=== PATIENT | female | born 1945 | race African-American/Black ===

== ENCOUNTER 2020-06-24 02:40 | Inpatient (IN) | payer OTHER, MEDICAID ==
[~2020-06-24] VITALS: Ht 160 cm; Wt 154.5 kg
[2020-06-24 05:16] LABS: Basophils # (auto) 0.1 10 ^3/uL (0-0.2); Eosinophils # (auto) 0.2 10 ^3/uL (0-0.8); Eosinophils % (auto) 3.2 % (0.0-7.0); Hematocrit 35.6 % (36.0-46.0); Hemoglobin 11.8 g/dL (12.2-16.2); Lymphocytes # (auto) 1.5 10 ^3/uL (0.4-5.4); Lymphocytes % (auto) 22.7 % (10.0-50.0); Mean Corpuscular Hemoglobin 28.8 pg (28.0-32.0); Mean Corpuscular Hgb Conc. 33.1 g/dL (32.0-36.0); Monocytes # (auto) 0.4 10 ^3/uL (0-1.3); Monocytes % (auto) 5.8 % (0.0-12.0); Neutrophils # (auto) 4.3 10 ^3/uL (1.6-8.6); Neutrophils % (auto) 67.3 % (37.0-80.0); Platelet Count (auto) 165 10^3/uL (140-450); Red Blood Cells 4.09 10^6/uL (4.0-5.20); Red Cell Distribution Width 14.7 % (11.8-14.3); White Blood Cell 6.4 10^3/uL (4.4-10.8)
[2020-06-24 05:41] LABS: Potassium 3.8 mmol/L (3.5-5.1)
[2020-06-24 05:53] LABS: Albumin 3.5 g/dL (3.4-5.0); BUN/Creatinine Ratio 17.6; Bilirubin, Total 0.5 mg/dL (0.2-1.0); CRP High Sensitivity 3.87 mg/dL (< 0.3); Calcium 8.7 mg/dL (8.5-10.1); Total Protein 7.6 g/dL (6.4-8.2)
[2020-06-24] MEDS ORDERED: CLINDAMYCIN 300MG IV 50 ML IV ONE (07:30)
[2020-06-24] MEDS ORDERED: PIPERACILLIN-TAZOB 3.375GM 100 ML IV ONE (07:30)
[2020-06-24] MEDS ORDERED: MORPHINE SULF INJ 2 MG/ML SYRINGE 1ML IV PRN ×2 (09:15→10:00)
[2020-06-24] MEDS ORDERED: NITROGLYCERIN 0.4 MG SL TAB SL PRN (09:15)
[2020-06-24] MEDS ORDERED: traMADol HCL 50 MG TAB PO PRN (10:00)
[2020-06-24] MEDS ORDERED: DEXTROSE (50%) 50ML SYRG IV PRN (10:00)
[2020-06-24] MEDS ORDERED: ONDANSETRON HCL 4 MG/2 ML VIAL IV PRN (10:00)
[2020-06-24] MEDS ORDERED: LACTULOSE 20Gm/30ML SOLN PO PRN (10:00)
[2020-06-24] MEDS ORDERED: TEMAZEPAM 15 MG CAP PO PRN (10:00)
[2020-06-24] MEDS ORDERED: ACETAMINOPHEN 500 MG TAB PO PRN (10:00)
[2020-06-24] MEDS ORDERED: levoFLOXacin 500MG 100 ML IV ONE (10:00)
[2020-06-24] MEDS: ENOXAPARIN SOD 40 MG/0.4 ML SYRINGE SC SCH (10:45)
[2020-06-24] MEDS: FAMOTIDINE 20 MG TAB PO SCH ×2 (10:45→23:10)
[2020-06-24] MEDS: levoFLOXacin 500MG 100 ML IV SCH (10:45)
[2020-06-24] MEDS: InsuLIN REG 1unit/0.01ml Soln (100units/ml) SC SCH ×3 (13:19→23:11)
[2020-06-24] MEDS: ACCU-CHEK COMFORT CURVE STRIP VI SCH ×3 (13:19→23:12)
[2020-06-24] MEDS: CLINDAMYCIN 600MG IV 50 ML IV SCH ×2 (14:16→22:00)
[2020-06-24 16:59] LABS: INR 1.09 (0.9-1.15)
[2020-06-25 05:05] VITALS: BP 148/72
[2020-06-25] MEDS: CLINDAMYCIN 600MG IV 50 ML IV SCH ×3 (06:00→21:40)
[2020-06-25] MEDS: ACCU-CHEK COMFORT CURVE STRIP VI SCH ×4 (07:00→21:39)
[2020-06-25] MEDS: InsuLIN REG 1unit/0.01ml Soln (100units/ml) SC SCH ×4 (07:00→22:00)
[2020-06-25 07:45] LABS: Urine WBC None Seen /hpf (0 - 5)
[2020-06-25 08:00] VITALS: BP 147/70
[2020-06-25 08:03] LABS: Urine Bacteria NONE SEEN /hpf (None Seen); Urine Blood Negative /uL (Negative); Urine Specific Gravity 1.007 (1.001-1.035)
[2020-06-25] MEDS: ENOXAPARIN SOD 40 MG/0.4 ML SYRINGE SC SCH (10:00)
[2020-06-25] MEDS: FAMOTIDINE 20 MG TAB PO SCH ×2 (10:17→21:40)
[2020-06-25] MEDS: levoFLOXacin 500MG 100 ML IV SCH (10:18)
[2020-06-25] MEDS ORDERED: ceFAZolin 1GM VL ONE (12:00)
[2020-06-25] MEDS ORDERED: ceFAZolin 1GM/50ML 50 ML IV ONE (13:45)
[2020-06-25] MEDS ORDERED: ROPIVACAINE 0.5% (5MG/ML) 20ML AMPULE IJ ONE (14:25)
[2020-06-25 16:00] VITALS: BP 140/78
[2020-06-25 22:00] VITALS: BP 169/76
[2020-06-26 05:00] VITALS: BP 148/78
[2020-06-26] MEDS: InsuLIN REG 1unit/0.01ml Soln (100units/ml) SC SCH ×4 (06:20→21:58)
[2020-06-26] MEDS: ACCU-CHEK COMFORT CURVE STRIP VI SCH ×4 (06:20→21:57)
[2020-06-26] MEDS: CLINDAMYCIN 600MG IV 50 ML IV SCH ×3 (06:21→21:57)
[2020-06-26 07:31] LABS: Basophils # (auto) 0 10 ^3/uL (0-0.2); Eosinophils # (auto) 0.2 10 ^3/uL (0-0.8); Eosinophils % (auto) 3.8 % (0.0-7.0); Hematocrit 34.1 % (36.0-46.0); Hemoglobin 11.3 g/dL (12.2-16.2); Lymphocytes # (auto) 1.5 10 ^3/uL (0.4-5.4); Lymphocytes % (auto) 34.9 % (10.0-50.0); Mean Corpuscular Hemoglobin 28.5 pg (28.0-32.0); Mean Corpuscular Volume 86.4 fL (80.0-100.0); Monocytes # (auto) 0.3 10 ^3/uL (0-1.3); Monocytes % (auto) 6.8 % (0.0-12.0); Neutrophils # (auto) 2.4 10 ^3/uL (1.6-8.6); Neutrophils % (auto) 53.5 % (37.0-80.0); Nucleated Red Blood Cells % 0.1 %; Platelet Count (auto) 178 10^3/uL (140-450); Red Blood Cells 3.95 10^6/uL (4.0-5.20); Red Cell Distribution Width 14.5 % (11.8-14.3); White Blood Cell 4.4 10^3/uL (4.4-10.8)
[2020-06-26 07:42] LABS: Potassium 3.7 mmol/L (3.5-5.1)
[2020-06-26 07:45] LABS: Albumin 3.1 g/dL (3.4-5.0); BUN/Creatinine Ratio 13.6; Calcium 8.5 mg/dL (8.5-10.1)
[2020-06-26 07:51] LABS: Bilirubin, Total 0.7 mg/dL (0.2-1.0); Total Protein 6.8 g/dL (6.4-8.2)
[2020-06-26 08:00] VITALS: BP 142/74
[2020-06-26] MEDS: ENOXAPARIN SOD 40 MG/0.4 ML SYRINGE SC SCH (10:19)
[2020-06-26] MEDS: levoFLOXacin 500MG 100 ML IV SCH (10:19)
[2020-06-26] MEDS: FAMOTIDINE 20 MG TAB PO SCH ×2 (10:19→21:57)
[2020-06-26] MEDS: POTASSIUM CHL 10 Meq TABLET PO SCH (10:20)
[2020-06-26] MEDS: amLODIPine BESYLATE 5 MG TAB PO SCH (10:20)
[2020-06-26] MEDS: FUROSEMIDE 40 MG TAB PO SCH (10:21)
[2020-06-26 16:00] VITALS: BP 141/70
[2020-06-26 22:00] VITALS: BP 141/73
[2020-06-27 05:00] VITALS: BP 148/71
[2020-06-27] MEDS: CLINDAMYCIN 600MG IV 50 ML IV SCH ×3 (06:01→21:50)
[2020-06-27] MEDS: ACCU-CHEK COMFORT CURVE STRIP VI SCH ×4 (06:01→21:50)
[2020-06-27] MEDS: InsuLIN REG 1unit/0.01ml Soln (100units/ml) SC SCH ×4 (06:01→22:09)
[2020-06-27 07:42] LABS: Basophils # (auto) 0.1 10 ^3/uL (0-0.2); Eosinophils # (auto) 0.2 10 ^3/uL (0-0.8); Hematocrit 35.6 % (36.0-46.0); Hemoglobin 11.6 g/dL (12.2-16.2); Lymphocytes # (auto) 1.7 10 ^3/uL (0.4-5.4); Lymphocytes % (auto) 33.5 % (10.0-50.0); Mean Corpuscular Hemoglobin 28.3 pg (28.0-32.0); Mean Corpuscular Hgb Conc. 32.5 g/dL (32.0-36.0); Monocytes # (auto) 0.4 10 ^3/uL (0-1.3); Monocytes % (auto) 7.3 % (0.0-12.0); Neutrophils # (auto) 2.8 10 ^3/uL (1.6-8.6); Neutrophils % (auto) 54.2 % (37.0-80.0); Platelet Count (auto) 190 10^3/uL (140-450); Red Blood Cells 4.09 10^6/uL (4.0-5.20); Red Cell Distribution Width 14.6 % (11.8-14.3); White Blood Cell 5.1 10^3/uL (4.4-10.8)
[2020-06-27 07:54] LABS: Potassium 4.1 mmol/L (3.5-5.1)
[2020-06-27 08:00] VITALS: BP 138/73
[2020-06-27 08:02] LABS: BUN/Creatinine Ratio 15.4; Calcium 8.6 mg/dL (8.5-10.1)
[2020-06-27] MEDS: POTASSIUM CHL 10 Meq TABLET PO SCH (10:10)
[2020-06-27] MEDS: levoFLOXacin 500MG 100 ML IV SCH (10:10)
[2020-06-27] MEDS: amLODIPine BESYLATE 5 MG TAB PO SCH (10:11)
[2020-06-27] MEDS: FUROSEMIDE 40 MG TAB PO SCH (10:11)
[2020-06-27] MEDS: FAMOTIDINE 20 MG TAB PO SCH ×2 (10:11→21:50)
[2020-06-27] MEDS: ENOXAPARIN SOD 40 MG/0.4 ML SYRINGE SC SCH (10:12)
[2020-06-27 16:00] VITALS: BP 146/92
[2020-06-27 22:00] VITALS: BP 148/64
[2020-06-28 05:00] VITALS: BP 136/69
[2020-06-28 05:50] LABS: Basophils # (auto) 0.1 10 ^3/uL (0-0.2); Basophils % (auto) 1.1 % (0.0-2.0); Eosinophils # (auto) 0.2 10 ^3/uL (0-0.8); Eosinophils % (auto) 4.4 % (0.0-7.0); Hematocrit 33.6 % (36.0-46.0); Hemoglobin 11.4 g/dL (12.2-16.2); Lymphocytes # (auto) 1.7 10 ^3/uL (0.4-5.4); Lymphocytes % (auto) 34.6 % (10.0-50.0); Mean Corpuscular Hemoglobin 28.9 pg (28.0-32.0); Mean Corpuscular Hgb Conc. 33.9 g/dL (32.0-36.0); Mean Corpuscular Volume 85.4 fL (80.0-100.0); Monocytes # (auto) 0.3 10 ^3/uL (0-1.3); Monocytes % (auto) 6.5 % (0.0-12.0); Neutrophils # (auto) 2.7 10 ^3/uL (1.6-8.6); Neutrophils % (auto) 53.4 % (37.0-80.0); Nucleated Red Blood Cells % 0.2 %; Platelet Count (auto) 184 10^3/uL (140-450); Red Blood Cells 3.93 10^6/uL (4.0-5.20); Red Cell Distribution Width 14.2 % (11.8-14.3)
[2020-06-28] MEDS: ACCU-CHEK COMFORT CURVE STRIP VI SCH ×2 (06:02→12:17)
[2020-06-28] MEDS: InsuLIN REG 1unit/0.01ml Soln (100units/ml) SC SCH ×2 (06:02→12:29)
[2020-06-28 06:09] LABS: Calcium 8.2 mg/dL (8.5-10.1); Potassium 3.8 mmol/L (3.5-5.1)
[2020-06-28] MEDS: CLINDAMYCIN 600MG IV 50 ML IV SCH (06:09)
[2020-06-28 06:16] LABS: BUN/Creatinine Ratio 14.6
[2020-06-28 08:00] VITALS: BP 147/74
[2020-06-28] MEDS: FAMOTIDINE 20 MG TAB PO SCH (09:45)
[2020-06-28] MEDS: FUROSEMIDE 40 MG TAB PO SCH (09:45)
[2020-06-28] MEDS: amLODIPine BESYLATE 5 MG TAB PO SCH (09:45)
[2020-06-28] MEDS: POTASSIUM CHL 10 Meq TABLET PO SCH (09:45)
[2020-06-28] MEDS: ENOXAPARIN SOD 40 MG/0.4 ML SYRINGE SC SCH (09:46)
[2020-06-28] MEDS: levoFLOXacin 500MG 100 ML IV SCH (09:46)
[2020-06-28 12:07] VITALS: BP 136/62
== END 2020-06-28 14:00 | disposition home or self-care (01) | DRG 854 ==
LOC: EDBD 02:40 → ER 02:46 → TELE 02:47 → TELE-CENTR 06-25 03:30
PROVIDERS: ADMIT Internal Medicine; ATTEND Internal Medicine
PROC: 0JBQ0ZZ Excision of Right Foot Subcutaneous Tissue and Fascia, Open Approach (ICD-10-PCS; principal; 2020-06-25 14:28)
DX: A41.9 Sepsis, unspecified organism (principal); L03.115 Cellulitis of right lower limb; I13.0 Hypertensive heart and chronic kidney disease with heart failure and stage 1 through stage 4 chronic kidney disease, or unspecified chronic kidney disease; L97.319 Non-pressure chronic ulcer of right ankle with unspecified severity; Z68.44 Body mass index [BMI] 60.0-69.9, adult; I50.32 Chronic diastolic (congestive) heart failure; Z20.822 Contact with and (suspected) exposure to COVID-19; B96.4 Proteus (mirabilis) (morganii) as the cause of diseases classified elsewhere; I89.0 Lymphedema, not elsewhere classified; E66.01 Morbid (severe) obesity due to excess calories; E11.22 Type 2 diabetes mellitus with diabetic chronic kidney disease; D63.8 Anemia in other chronic diseases classified elsewhere; N18.2 Chronic kidney disease, stage 2 (mild); E11.621 Type 2 diabetes mellitus with foot ulcer; Z83.3 Family history of diabetes mellitus; Z90.710 Acquired absence of both cervix and uterus; Z85.41 Personal history of malignant neoplasm of cervix uteri
CPT/HCPCS: 36415; 71045; 73700; 80048; 80053; 81001; 82962; 83036; 83605; 84443; 85025; 85610; 85652; 86141; 87040; 87070; 87075; 87076; 87077; 87186; 87205; 87426; 93306; 96365; 96368; 96372; 97110; 97116; 97163; 97530; G0378; J0690; J1815; J1956; J2543; J3490

== ENCOUNTER 2021-08-19 16:56 | Inpatient (IN) | payer OTHER, MEDICAID ==
[~2021-08-19] VITALS: Ht 160 cm; Wt 152.2 kg
[2021-08-19] MEDS ORDERED: ACETAMINOPHEN 500 MG TAB PO ONE (17:15)
[2021-08-19] MEDS ORDERED: SODIUM CHLORIDE 0.9% 1,000 ML IV ONE (17:15)
[2021-08-19 18:31] LABS: Basophils # (auto) 0.1 10 ^3/uL (0-0.2); Basophils % (auto) 0.6 % (0.0-2.0); Eosinophils # (auto) 0 10 ^3/uL (0-0.8); Hematocrit 34.6 % (36.0-46.0); Hemoglobin 11.6 g/dL (12.2-16.2); Lymphocytes # (auto) 0.7 10 ^3/uL (0.4-5.4); Lymphocytes % (auto) 5.8 % (10.0-50.0); Mean Corpuscular Hgb Conc. 33.6 g/dL (32.0-36.0); Mean Corpuscular Volume 86.3 fL (80.0-100.0); Monocytes # (auto) 0.8 10 ^3/uL (0-1.3); Monocytes % (auto) 6.8 % (0.0-12.0); Neutrophils # (auto) 10.3 10 ^3/uL (1.6-8.6); Neutrophils % (auto) 86.8 % (37.0-80.0); Nucleated Red Blood Cells % 0.1 %; Red Blood Cells 4.01 10^6/uL (4.0-5.20); Red Cell Distribution Width 14.9 % (11.8-14.3); White Blood Cell 11.9 10^3/uL (4.4-10.8)
[2021-08-19 18:48] LABS: Albumin 3.1 g/dL (3.4-5.0); Calcium 8.7 mg/dL (8.5-10.1); Potassium 3.4 mmol/L (3.5-5.1)
[2021-08-19 19:04] LABS: Bilirubin, Total 1.5 mg/dL (0.2-1.0); Total Protein 7.2 g/dL (6.4-8.2)
[2021-08-20 00:13] LABS: Urine Bacteria NONE SEEN /hpf (None Seen); Urine Blood 2+ /uL (Negative); Urine Budding Yeast FEW /hpf (None Seen); Urine Specific Gravity 1.012 (1.001-1.035); Urine WBC 232 /hpf (0 - 5)
[2021-08-20] MEDS ORDERED: DOCUSATE SOD 100 MG CAP PO PRN (04:15)
[2021-08-20] MEDS ORDERED: ONDANSETRON HCL 4 MG/2 ML VIAL IV PRN (04:15)
[2021-08-20] MEDS ORDERED: DEXTROSE (50%) 50ML SYRG IV PRN (04:15)
[2021-08-20] MEDS ORDERED: cefTRIAXone 1GM/50ML D5W 50 ML IV ONE ×2 (04:15→04:16)
[2021-08-20] MEDS ORDERED: ACETAMINOPHEN 325 MG TAB PO PRN (04:15)
[2021-08-20 04:48] LABS: Basophils # (auto) 0.1 10 ^3/uL (0-0.2); Basophils % (auto) 0.5 % (0.0-2.0); Eosinophils # (auto) 0 10 ^3/uL (0-0.8); Eosinophils % (auto) 0.3 % (0.0-7.0); Hematocrit 32.8 % (36.0-46.0); Hemoglobin 11.1 g/dL (12.2-16.2); Lymphocytes # (auto) 0.7 10 ^3/uL (0.4-5.4); Lymphocytes % (auto) 6.3 % (10.0-50.0); Mean Corpuscular Hemoglobin 29.3 pg (28.0-32.0); Mean Corpuscular Hgb Conc. 33.9 g/dL (32.0-36.0); Mean Corpuscular Volume 86.3 fL (80.0-100.0); Monocytes % (auto) 8.9 % (0.0-12.0); Neutrophils # (auto) 9.6 10 ^3/uL (1.6-8.6); White Blood Cell 11.4 10^3/uL (4.4-10.8)
[2021-08-20 05:01] LABS: Albumin 2.8 g/dL (3.4-5.0); Calcium 8.3 mg/dL (8.5-10.1); Potassium 3.3 mmol/L (3.5-5.1)
[2021-08-20 05:04] LABS: BUN/Creatinine Ratio 13.6
[2021-08-20 05:06] LABS: Bilirubin, Total 1.2 mg/dL (0.2-1.0); Total Protein 6.5 g/dL (6.4-8.2)
[2021-08-20] MEDS ORDERED: NITROGLYCERIN 0.4 MG SL TAB SL PRN (05:15)
[2021-08-20] MEDS ORDERED: MORPHINE SULFATE INJECTION 2 MG/ML SYRG IV PRN (05:15)
[2021-08-20] MEDS: SODIUM CHLOR 0.9% PF (SALINE LOCK) 10ML VIAL/SYR IV SCH ×3 (06:16→22:00)
[2021-08-20] MEDS: ACCU-CHEK COMFORT CURVE STRIP VI SCH ×4 (06:44→22:14)
[2021-08-20] MEDS: InsuLIN REG 1unit/0.01ml Soln (100units/ml) SC SCH ×4 (06:45→22:00)
[2021-08-20 09:00] VITALS: BP 152/70
[2021-08-20] MEDS ORDERED: cefTRIAXone 1GM/50ML D5W 50 ML IV SCH (09:00)
[2021-08-20] MEDS: HYDROcodone-ACET 5/325MG TAB PO PRN ×2 (09:30→17:35)
[2021-08-20] MEDS ORDERED: FAMOTIDINE (10MG/ML) 2ML VL IV SCH (10:00)
[2021-08-20] MEDS: ASCORBIC ACID 500 MG TAB PO SCH ×2 (10:41→22:13)
[2021-08-20] MEDS: MULTIPLE VITAMIN TAB PO SCH (10:41)
[2021-08-20] MEDS: ZINC SULFATE 220mg CAP or TAB PO SCH (10:41)
[2021-08-20 12:54] VITALS: BP 112/78
[2021-08-20] MEDS ORDERED: ENOXAPARIN SOD 40 MG/0.4 ML SYRINGE SC ONE (16:00)
[2021-08-20] MEDS ORDERED: METF500S PO (16:29)
[2021-08-20] MEDS ORDERED: HYDR-4798 PO (16:29)
[2021-08-20] MEDS ORDERED: AMLO-489 PO (16:29)
[2021-08-20] MEDS ORDERED: BENZ100C97 PO (16:29)
[2021-08-20] MEDS ORDERED: LOSA-39 PO (16:29)
[2021-08-20] MEDS ORDERED: LATA0.0019 LEFTEYE (16:29)
[2021-08-20] MEDS ORDERED: POLYSOL2 LEFTEYE (16:29)
[2021-08-20] MEDS ORDERED: ALBU2TAB4 PO (16:29)
[2021-08-20] MEDS ORDERED: UMEC1INH IN (16:29)
[2021-08-20] MEDS ORDERED: PRED15SO26 LEFTEYE (16:29)
[2021-08-20] MEDS ORDERED: OME20GT PO (16:29)
[2021-08-20 17:00] VITALS: BP 123/62
[2021-08-20] MEDS ORDERED: PATIENTS OWN MEDICATION OP SCH (22:00)
[2021-08-20] MEDS: PANTOPRAZOLE 40 MG TAB PO SCH (22:13)
[2021-08-20] MEDS: LATANOPROST 0.005 % OPTH(EYE) SOL 2.5ML OP SCH (22:14)
[2021-08-20 22:37] VITALS: BP 125/62
[2021-08-21] MEDS: cefTRIAXone 1GM/50ML D5W 50 ML IV SCH (04:54)
[2021-08-21 05:28] VITALS: BP 136/66
[2021-08-21] MEDS: SODIUM CHLOR 0.9% PF (SALINE LOCK) 10ML VIAL/SYR IV SCH ×3 (06:00→21:20)
[2021-08-21] MEDS: ACCU-CHEK COMFORT CURVE STRIP VI SCH ×4 (06:31→22:00)
[2021-08-21] MEDS: InsuLIN REG 1unit/0.01ml Soln (100units/ml) SC SCH ×4 (06:31→22:56)
[2021-08-21 07:53] LABS: Basophils # (auto) 0 10 ^3/uL (0-0.2); Basophils % (auto) 0.3 % (0.0-2.0); Eosinophils # (auto) 0 10 ^3/uL (0-0.8); Eosinophils % (auto) 0.7 % (0.0-7.0); Hematocrit 32.5 % (36.0-46.0); Lymphocytes # (auto) 1.1 10 ^3/uL (0.4-5.4); Lymphocytes % (auto) 19.4 % (10.0-50.0); Mean Corpuscular Hgb Conc. 33.8 g/dL (32.0-36.0); Mean Corpuscular Volume 85.7 fL (80.0-100.0); Monocytes # (auto) 0.6 10 ^3/uL (0-1.3); Monocytes % (auto) 10.7 % (0.0-12.0); Neutrophils # (auto) 3.9 10 ^3/uL (1.6-8.6); Neutrophils % (auto) 68.9 % (37.0-80.0); Nucleated Red Blood Cells % 0.1 %; Red Blood Cells 3.79 10^6/uL (4.0-5.20); Red Cell Distribution Width 14.8 % (11.8-14.3); White Blood Cell 5.7 10^3/uL (4.4-10.8)
[2021-08-21 09:00] VITALS: BP 120/60
[2021-08-21] MEDS: ASCORBIC ACID 500 MG TAB PO SCH ×2 (09:01→21:20)
[2021-08-21] MEDS: HYDROcodone-ACET 5/325MG TAB PO PRN (09:01)
[2021-08-21] MEDS: ZINC SULFATE 220mg CAP or TAB PO SCH (09:01)
[2021-08-21] MEDS: PANTOPRAZOLE 40 MG TAB PO SCH ×2 (09:01→21:20)
[2021-08-21] MEDS: MULTIPLE VITAMIN TAB PO SCH (09:01)
[2021-08-21] MEDS: ENOXAPARIN SOD 40 MG/0.4 ML SYRINGE SC SCH (09:01)
[2021-08-21 09:15] LABS: Potassium 3.6 mmol/L (3.5-5.1)
[2021-08-21 09:22] LABS: Albumin 2.5 g/dL (3.4-5.0); BUN/Creatinine Ratio 12.6; Bilirubin, Total 0.7 mg/dL (0.2-1.0); Calcium 8.1 mg/dL (8.5-10.1); Total Protein 6.8 g/dL (6.4-8.2)
[2021-08-21] MEDS ORDERED: AZITHROMYCIN 500MG/ 250ML 250 ML IV ONE (12:30)
[2021-08-21 13:00] VITALS: BP 132/60
[2021-08-21 17:00] VITALS: BP 141/76
[2021-08-21] MEDS: LATANOPROST 0.005 % OPTH(EYE) SOL 2.5ML OP SCH (21:20)
[2021-08-21 22:00] VITALS: BP 136/63
[2021-08-22 04:49] LABS: Hematocrit 30.6 % (36.0-46.0); Hemoglobin 10.3 g/dL (12.2-16.2); Mean Corpuscular Hemoglobin 28.9 pg (28.0-32.0); Mean Corpuscular Hgb Conc. 33.8 g/dL (32.0-36.0); Mean Corpuscular Volume 85.6 fL (80.0-100.0); Red Blood Cells 3.57 10^6/uL (4.0-5.20); White Blood Cell 3.7 10^3/uL (4.4-10.8)
[2021-08-22 04:50] VITALS: BP_SYST 123; BP_SYST 158; BP_DIAS 63; BP_DIAS 97
[2021-08-22 04:52] LABS: Basophils % (manual) 0 (0.0-2.0); Blast Cells 0; Metamyelocytes % 0; Myelocytes % 0; Promyelocytes % 0; Reactive Lymphocytes 0
[2021-08-22] MEDS: cefTRIAXone 1GM/50ML D5W 50 ML IV SCH (04:57)
[2021-08-22 05:04] LABS: BUN/Creatinine Ratio 15.5; Calcium 8.1 mg/dL (8.5-10.1); Potassium 3.5 mmol/L (3.5-5.1)
[2021-08-22 05:56] LABS: Band Neutrophils % (manual) 3; Eosinophils % (manual) 2 (0-7); Lymphocytes % (manual) 31 (10.0-50.0); Monocytes % (manual) 19 (0-12)
[2021-08-22] MEDS: SODIUM CHLOR 0.9% PF (SALINE LOCK) 10ML VIAL/SYR IV SCH ×3 (06:00→22:00)
[2021-08-22] MEDS: ACCU-CHEK COMFORT CURVE STRIP VI SCH ×4 (06:55→22:09)
[2021-08-22] MEDS: InsuLIN REG 1unit/0.01ml Soln (100units/ml) SC SCH ×4 (06:55→22:17)
[2021-08-22 09:00] VITALS: BP 141/68
[2021-08-22] MEDS: ASCORBIC ACID 500 MG TAB PO SCH ×2 (10:00→22:09)
[2021-08-22] MEDS: ENOXAPARIN SOD 40 MG/0.4 ML SYRINGE SC SCH (10:00)
[2021-08-22] MEDS: ZINC SULFATE 220mg CAP or TAB PO SCH (10:00)
[2021-08-22] MEDS: PANTOPRAZOLE 40 MG TAB PO SCH (10:00)
[2021-08-22] MEDS: MULTIPLE VITAMIN TAB PO SCH (10:00)
[2021-08-22] MEDS: AZITHROMYCIN 500MG/ 250ML 250 ML IV SCH ×2 (10:00→19:33)
[2021-08-22 17:00] VITALS: BP 150/70
[2021-08-22 22:00] VITALS: BP 119/53
[2021-08-22] MEDS: LATANOPROST 0.005 % OPTH(EYE) SOL 2.5ML OP SCH (22:09)
[2021-08-23 05:00] VITALS: BP 158/78
[2021-08-23] MEDS: cefTRIAXone 1GM/50ML D5W 50 ML IV SCH (05:08)
[2021-08-23] MEDS: SODIUM CHLOR 0.9% PF (SALINE LOCK) 10ML VIAL/SYR IV SCH ×2 (06:00→14:00)
[2021-08-23 06:03] LABS: Hematocrit 29.8 % (36.0-46.0); Hemoglobin 10.1 g/dL (12.2-16.2); Mean Corpuscular Hemoglobin 29.1 pg (28.0-32.0); Mean Corpuscular Hgb Conc. 34.1 g/dL (32.0-36.0); Mean Corpuscular Volume 85.6 fL (80.0-100.0); Red Blood Cells 3.48 10^6/uL (4.0-5.20); Red Cell Distribution Width 14.6 % (11.8-14.3); White Blood Cell 4.3 10^3/uL (4.4-10.8)
[2021-08-23 06:13] LABS: BUN/Creatinine Ratio 15.9; Calcium 8.5 mg/dL (8.5-10.1); Potassium 3.6 mmol/L (3.5-5.1)
[2021-08-23 06:15] LABS: Basophils % (manual) 0 (0.0-2.0); Blast Cells 0; Metamyelocytes % 0; Myelocytes % 0; Promyelocytes % 0; Reactive Lymphocytes 0
[2021-08-23] MEDS: InsuLIN REG 1unit/0.01ml Soln (100units/ml) SC SCH ×2 (07:00→11:30)
[2021-08-23] MEDS: ACCU-CHEK COMFORT CURVE STRIP VI SCH ×2 (07:03→11:30)
[2021-08-23 08:43] LABS: Band Neutrophils % (manual) 4; Lymphocytes % (manual) 44 (10.0-50.0)
[2021-08-23 08:44] LABS: Eosinophils % (manual) 8 (0-7); Monocytes % (manual) 15 (0-12)
[2021-08-23 09:00] VITALS: BP 125/68
[2021-08-23] MEDS: MULTIPLE VITAMIN TAB PO SCH (10:00)
[2021-08-23] MEDS ORDERED: PANTOPRAZOLE 40 MG TAB PO SCH (10:00)
[2021-08-23] MEDS: ZINC SULFATE 220mg CAP or TAB PO SCH (10:00)
[2021-08-23] MEDS: ENOXAPARIN SOD 40 MG/0.4 ML SYRINGE SC SCH (10:06)
[2021-08-23] MEDS: ASCORBIC ACID 500 MG TAB PO SCH (10:06)
[2021-08-23] MEDS: AZITHROMYCIN 500MG/ 250ML 250 ML IV SCH (10:08)
[2021-08-23] MEDS: HYDROcodone-ACET 5/325MG TAB PO PRN (10:08)
[2021-08-23] MEDS ORDERED: LEVO750T64 PO (11:10)
[2021-08-23 13:00] VITALS: BP 115/46
[2021-08-23 17:00] VITALS: BP 151/76
== END 2021-08-23 18:25 | disposition home or self-care (01) | DRG 871 ==
LOC: EDBD 16:56 → ER 17:00 → OVERFLOW 08-20 05:07 → WEST WING 08-20 08:01
PROVIDERS: ADMIT Nurse Practitioner Family; ATTEND Internal Medicine Pulmonary Disease
DX: A41.9 Sepsis, unspecified organism (principal); J18.9 Pneumonia, unspecified organism; J44.0 Chronic obstructive pulmonary disease with (acute) lower respiratory infection; E87.6 Hypokalemia; D69.6 Thrombocytopenia, unspecified; B96.20 Unspecified Escherichia coli [E. coli] as the cause of diseases classified elsewhere; K82.8 Other specified diseases of gallbladder; E11.22 Type 2 diabetes mellitus with diabetic chronic kidney disease; I12.9 Hypertensive chronic kidney disease with stage 1 through stage 4 chronic kidney disease, or unspecified chronic kidney disease; N18.9 Chronic kidney disease, unspecified; Z98.84 Bariatric surgery status; K21.9 Gastro-esophageal reflux disease without esophagitis; R79.89 Other specified abnormal findings of blood chemistry; Z88.8 Allergy status to other drugs, medicaments and biological substances; Z20.822 Contact with and (suspected) exposure to COVID-19
CPT/HCPCS: 36415; 71045; 71250; 74176; 78226; 80048; 80053; 81001; 82962; 83036; 83605; 83690; 84484; 85007; 85025; 85027; 85379; 87040; 87077; 87086; 87186; 93005; 93970; 96361; 96365; G0378; J0696; J1815; J3490

== ENCOUNTER 2022-08-30 15:41 | Emergency (ER) | payer OTHER, MEDICAID ==
[~2022-08-30] VITALS: Ht 165.1 cm; Wt 181.8 kg
[~2022-08-30 15:41] MED LIST: ALBU2TAB4 PO; AMLO-489 PO; BENZ100C97 PO; HYDR-4798 PO; LATA0.0019 LEFTEYE; LEVO750T64 PO; LOSA-39 PO; METF500S PO; OME20GT PO; POLYSOL2 LEFTEYE; PRED15SO26 LEFTEYE; UMEC1INH IN
[2022-08-30 16:19] LABS: Basophils # (auto) 0 10 ^3/uL (0-0.2); Basophils % (auto) 0.3 % (0.0-2.0); Eosinophils # (auto) 0.2 10 ^3/uL (0-0.8); Eosinophils % (auto) 5.1 % (0.0-7.0); Hemoglobin 12.3 g/dL (12.2-16.2); Lymphocytes # (auto) 1.9 10 ^3/uL (0.4-5.4); Lymphocytes % (auto) 44.2 % (10.0-50.0); Mean Corpuscular Hgb Conc. 33.4 g/dL (32.0-36.0); Mean Corpuscular Volume 86.8 fL (80.0-100.0); Monocytes # (auto) 0.5 10 ^3/uL (0-1.3); Monocytes % (auto) 11.6 % (0.0-12.0); Neutrophils # (auto) 1.7 10 ^3/uL (1.6-8.6); Neutrophils % (auto) 38.8 % (37.0-80.0); Nucleated Red Blood Cells % 0.2 %; Red Blood Cells 4.26 10^6/uL (4.0-5.20); White Blood Cell 4.3 10^3/uL (4.4-10.8)
[2022-08-30 16:36] LABS: Albumin 3.4 g/dL (3.4-5.0); Calcium 8.9 mg/dL (8.5-10.1); Magnesium 1.9 mg/dL (1.6-2.6); Potassium 4.1 mmol/L (3.5-5.1)
[2022-08-30 16:42] LABS: BUN/Creatinine Ratio 15.4 (10.0-20.0); Bilirubin, Total 0.5 mg/dL (0.2-1.0); Total Protein 7.1 g/dL (6.4-8.2)
[2022-08-30] MEDS ORDERED: methylPREDNISolone SOD SUCC 125 MG/2 ML VL IV ONE (18:00)
[2022-08-30] MEDS ORDERED: IPRATROPIUM BROM 0.5 MG/2.5ML INH SOL NEB ONE (18:00)
[2022-08-30] MEDS ORDERED: ALBUTEROL SULF 2.5 MG/0.5ML(0.5%) NEB SOLN NEB ONE (18:00)
[2022-08-30] MEDS ORDERED: ONDA-144 PO (18:28)
[2022-08-30] MEDS ORDERED: PRED20TA2 PO (18:28)
[2022-08-30] MEDS ORDERED: DOXY-286 PO (18:28)
[2022-08-30] MEDS ORDERED: DOXYCYCLINE 100 MG TAB/CAP PO ONE (18:45)
[2022-08-30] MEDS ORDERED: IPRA0.00 IN (21:23)
[2022-08-30] MEDS ORDERED: NEBU1MIS24 XX (21:23)
[2022-08-30 21:26] VITALS: BP 142/75
[2022-08-30] MEDS ORDERED: methylPREDNISolone SOD SUCC 125 MG/2 ML VL IM ONE (21:30)
== END 2022-08-30 21:35 | disposition home or self-care (01) ==
LOC: EDBD 15:41 → EDUNIT# 15:41 → ER 15:41
DX: J44.1 Chronic obstructive pulmonary disease with (acute) exacerbation (principal); E11.22 Type 2 diabetes mellitus with diabetic chronic kidney disease; I12.9 Hypertensive chronic kidney disease with stage 1 through stage 4 chronic kidney disease, or unspecified chronic kidney disease; N18.9 Chronic kidney disease, unspecified; K21.9 Gastro-esophageal reflux disease without esophagitis; Z20.822 Contact with and (suspected) exposure to COVID-19
CPT/HCPCS: 36415; 71045; 80053; 83735; 84484; 85025; 87426; 87804; 93005; 94640; 96372; 99285; J2930; J7644